=== PATIENT | female | born 2005 | race Caucasian/White ===

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

== ENCOUNTER 2025-09-21 14:23 | Inpatient (IN) | payer OTHER, SELFPAY ==
--- NOTE | ~2025-09-21 | CT_ITS ---
Rosalinda Oscar EXAMINATION: CT abdomen pelvis w con COMPARISON: None HISTORY: RLQ pain, N/V TECHNIQUE: Axial images were obtained through the abdomen, pelvis post administration of IV contrast. Oral contrast was also administered. Coronal reconstruction images were obtained from the axial views. CT scan performed using dose optimization techniques including the following automated exposure control; adjustment of mA and/or kV; use of iterative reconstruction technique. Automatic exposure control was used to reduce radiation dose. Permanent radiation dose record is archived to PACS. FINDINGS: CT abdomen: LUNG BASES: The lung bases are clear. The visualized portions of the heart and pericardium are unremarkable. LIVER: Unremarkable, liver contours intact, no lesions. SPLEEN: Unremarkable. KIDNEYS: Right Kidney: Unremarkable. No calculi. No hydronephrosis. Left Kidney: Unremarkable. No calculi. No hydronephrosis ADRENAL GLANDS: Unremarkable. PANCREAS: Unremarkable. GALLBLADDER/BILIARY: Unremarkable. No biliary dilatation. STOMACH AND ESOPHAGUS: Visualized stomach and esophagus within normal limits. BOWEL/MESENTERY: Moderate fecal content. No diverticulitis. Fluid-filled loops of large bowel which are slightly hyperemic. The appendix is prominent measuring 8 mm although there is no periappendiceal inflammation. No thickened or dilated loops of small bowel. Mesentery appears normal. ADENOPATHY/RETROPERITONEUM: No lymphadenopathy. AORTA/VASCULATURE: Normal caliber aorta. FREE FLUID OR FREE AIR: Small amount of free fluid.. CT pelvis: SOLID ORGANS/REPRODUCTIVE: Unremarkable. BLADDER: Within normal limits. OSSEOUS STRUCTURES: No acute osseous abnormality.No suspicious lesions. OVERLYING SOFT TISSUES: Unremarkable. IMPRESSION: Thickened appendix, correlate for symptoms of early appendicitis. Mild colitis is also suspected. Reviewed, dictated and finalized at location [facility]
[2025-09-21 14:28] VITALS: BP 109/69; PULSE 92; RESP 18; TEMP 36.5; O2SAT 98
[2025-09-21 14:37] VITALS: BP 110/76; O2SAT 100
[2025-09-21 15:00] LABS: Hematocrit 38.5 % (37.0-47.0); Hemoglobin 13.4 g/dL (12.0-15.0); Immature Granulocyte Percent A 0.3 % (0-0.5); Lymphocytes Absolute Auto 1.92 K/mm3 (0.9-3.2); Mean Corpuscular HGB Conc 34.8 g/dl (32-36); Mean Corpuscular Hemoglobin 29.6 pg (26-34); Mean Corpuscular Volume 85.2 fl (80-100); Nucleated Red Blood Cells Absolute Auto 0.000 K/mm3 (0.0-0.012); Nucleated Red Blood Cells Perc 0.0 % (0.0-0.2); Platelet Count Result 294 k/mm3 (150-375); Red Blood Count 4.52 M/mm3 (4.2-5.4); White Blood Count 12.6 K/mm3 (4.5-10.0)
[2025-09-21 15:09] LABS: Add Urine Microscopic? YES; Appearance Urine Cloudy (Clear); Glucose Urine UA Negative (Negative); Leukocyte Esterase Ur Negative LEU/UL (Negative); Need Manual Microscopic Reviewed; Nitrate Urine Negative (Negative); Non Pathogenic Casts 0-2; Specific Grav Ur 1.027 (1.001-1.035)
[2025-09-21 15:37] LABS: Alanine Aminotransferase 27 U/L (6-35); Albumin Level 4.3 g/dL (3.5-5.1); Alkaline Phosphatase 77 U/L (38-126); Anion Gap 5 mmol/L (4-12); Aspartate Amino Transferase 34 U/L (14-36); Bilirubin,Total 0.6 mg/dL (0.2-1.3); Blood Urea Nitrogen 17 mg/dL (7-17); Calcium 9.3 mg/dL (8.4-10.2); Carbon Dioxide 29 mmol/L (22-30); Chloride 103 mmol/L (98-107); Estimated CRCL calculation 105 ml/min; Estimated Glomerular Filt Rate > 60; Glucose 99 mg/dL (65-110); Lipase 40 U/L (23-300); Potassium 3.6 mmol/L (3.4-5.0); Sodium 137 mmol/L (137-145); Total Protein 7.1 g/dL (6.3-8.2)
--- NOTE | 2025-09-21 16:25 | ED_ITS ---
HPI - Abdominal Pain General Chief Complaint: Abdominal Pain <JOSEY Mahmood Last Filed: 09/21/25 17:39> Stated Complaint: right abdominal pain, N/V <JOSEY Mahmood Last Filed: 09/21/25 17:39> Time Seen by Provider: 09/21/25 14:24 <JOSEY Mahmood Last Filed: 09/21/25 17:39> Source: patient <JOSEY Mahmood Last Filed: 09/21/25 17:39> Mode of arrival: ambulatory <JOSEY Mahmood Last Filed: 09/21/25 17:39> Limitations: no limitations <JOSEY Mahmood Last Filed: 09/21/25 17:39> History of Present Illness HPI narrative: Patient is a 20-year-old female who presents the ED with report of right- sided abdominal pain. Patient reports she has had persistent nausea, vomiting, decreased appetite since Thursday. States today she began having pain throughout her right-sided lower abdomen. Worse with movement, standing. Denies fevers, diarrhea, constipation, dysuria, hematuria. Denies previous history of ovarian cysts. <JOSEY Mahmood Last Filed: 09/21/25 17:39> Related Data Home Medications: Home Medications ?Medication ?Instructions ?Recorded ?Confirmed ?Last Taken ?Type buspirone 15 mg tablet 15 mg PO DAILY 09/21/2502/1009/21/25 History escitalopram oxalate 20 mg tablet 20 mg PO DAILY 09/2109/21/25 09/21/25 History methylphenidate HCl 36 mg 36 mg PO DAILY PRN focus 02/1009/21/25 09/20/25 History tablet,extended release 24 hr <JOSEY Mahmood Last Filed: 09/21/25 17:39> Allergies/Adverse Reactions: Allergies Allergy/AdvReac Type Severity Reaction Status Date / Time vancomycin Allergy Severe Rash Verified 09/21/25 18:16 <JOSEY Mahmood Last Filed: 09/21/25 17:39> Review of Systems 2 Review of Systems: All systems reviewed & are unremarkable except as noted in HPI. <Gifty Hamm PA-C - Last Filed: 09/21/25 17:39> All systems reviewed & are unremarkable except as noted in HPI and below < Gifty Hamm PA-C - Last Filed: 09/21/25 17:39> PMFSH Past Medical History Medical History: Medical History No pertinent past medical history COVID-19 virus infection <Gifty Hamm PA-C - Last Filed: 09/21/25 17:39> Surgical History Surgical History: Surgical History No pertinent past surgical history <Gifty Hamm PA-C - Last Filed: 09/21/25 17:39> Family History Family History: Family History Mother Family history non-contributory <Gifty Hamm PA-C - Last Filed: 09/21/25 17:39> Social History Social History: Social History Smoking status: Never smoker Alcohol intake: never Substance use: never Lack of Transportation: No Lack of Food: Never True Current Housing: I Have Housing Concerned About Future Housing: No Difficulty Paying Gas/Electric Bills: No Difficulty Paying for Meds: No Currently Unemployed: No Education: High School Diploma/GED Difficulty w/ Childcare or Family Care: No Living arrangements: with family Gender identity (if verbalized by the patient): Female Spiritual care concerns: No <Gifty Hamm PA-C - Last Filed: 09/21/25 17:39> Exam 2 Narrative: GENERAL: Well appearing, well-nourished, non-toxic, in no acute distress. HEAD: Normocephalic, atraumatic. RESPIRATORY: Airway patent, respirations nonlabored. Clear to auscultation bilaterally, no rales, rhonchi, wheezing. CARDIOVASCULAR: Regular rate and rhythm without murmurs, rubs, or gallops. ABDOMINAL: Soft, focal tenderness throughout right lower abdomen. Positive Rovsing sign, no rebound, nondistended. Normoactive BS. MUSCULOSKELETAL: Moves all extremities. No gross deformities. SKIN: Warm, dry, normal color. NEURO: A&O X3. Speech clear. Cranial nerves II-XII grossly intact. Steady gait. No ataxic movements. PSYCHIATRIC: Appropriate mood and affect. Normal interaction. <Gifty Hamm PA-C - Last Filed: 09/21/25 17:39> Course DIRECTOR OUTCOMES/PA Physician Supervision This visit was performed by both a physician and an APC; I performed all aspects of the medical decision making component of this evaluation as documented. <Bridgette Antunez MD - Last Filed: 09/21/25 18:22> Vital Signs Vital signs: Vital Signs Temperature 97.7 F 09/21/25 14:28 Pulse Rate 92 09/21/25 14:28 Respiratory Rate 18 09/21/25 14:28 Blood Pressure 109/69 09/21/25 14:28 Pulse Oximetry 98 09/21/25 14:28 Temperature 97.7 F 09/21/25 14:28 Pulse Rate 96 09/21/25 17:40 Respiratory Rate 18 09/21/25 17:40 Blood Pressure 103/80 09/21/25 17:40 Pulse Oximetry 98 09/21/25 17:40 <Gifty Hamm PA-C - Last Filed: 09/21/25 17:39> Vital Signs Temperature 97.7 F 09/21/25 14:28 Pulse Rate 92 09/21/25 14:28 Respiratory Rate 18 09/21/25 14:28 Blood Pressure 109/69 09/21/25 14:28 Pulse Oximetry 98 09/21/25 14:28 Temperature 97.7 F 09/21/25 14:28 Pulse Rate 96 09/21/25 17:40 Respiratory Rate 18 09/21/25 17:40 Blood Pressure 103/80 09/21/25 17:40 Pulse Oximetry 98 09/21/25 17:40 <Bridgette Antunez MD - Last Filed: 09/21/25 18:22> [facility] Narrative Medical decision making narrative: Patient presented to ED with right-sided abdominal pain, nausea, vomiting. Vital signs stable upon arrival. Patient afebrile here. Cbc with white blood cell count of 12.6. Neutrophil predominance. No bandemia. CMP unremarkable. Stable kidney function. UA with 1+ ketones, 11-20 RBC. No signs of infection. CT scan of abdomen/pelvis was obtained and showing findings concerning for early appendicitis. Discussed case with Dr. Sanchez, general surgery, recommended to start patient on Zosyn, admit and he will see patient in the morning and re-evaluate for potential surgery. Discussed these recommendations with patient and family. They are in agreement with plan. P.r.n. pain and nausea medicines ordered. Patient remains hemodynamically stable at this time. <Gifty Hamm PA-C - Last Filed: 09/21/25 17:39> Differential Diagnosis Differential Diagnosis: Appendicitis, gastroenteritis, ovarian cyst, constipation, bowel obstruction <JOSEY Mahmood Last Filed: 09/21/25 17:39> Medical Records I have reviewed the following patient records and this information was taken into consideration when formulating the assessment and plan.: previous labs, previous ER visits, previous hospitalizations and previous clinic visits <JOSEY Mahmood Last Filed: 09/21/25 17:39> Lab Data [facility] Lab Attestation statement: I personally reviewed the patient's lab results. <Gifty Hamm PA-C - Last Filed: 09/21/25 17:39> Result diagrams: 09/21/25 14:54 09/21/25 14:54 <JOSEY Mahmood Last Filed: 09/21/25 17:39> Labs: Lab Results 09/21/25 Range/Units 14:54 WBC 12.6 H (4.5-10.0) K/mm3 RBC 4.52 (4.2-5.4) M/mm3 Hgb 13.4 (12.0-15.0) g/dL Hct 38.5 (37.0-47.0) % MCV 85.2 (80-100) fl MCH 29.6 (26-34) pg MCHC 34.8 (32-36) g/dl RDW 12.8 (11.5-14.5) % Plt Count 294 (150-375) k/mm3 MPV 9.6 (7.4-10.4) fl Immature Gran % (Auto) 0.3 (0-0.5) % Neut % (Auto) 73.4 H (45.5-73.1) % Lymph % (Auto) 15.3 L (18.3-44.2) % Ralls % (Auto) 10.7 H (2.6-8.5) % Eos % (Auto) 0.1 (0-4.4) % Baso % (Auto) 0.2 (0.2-1.2) % Lymph # (Auto) 1.92 (0.9-3.2) K/mm3 Ralls # (Auto) 1.3 H (0.1-0.6) K/mm3 Eos # (Auto) 0.0 (0-0.3) K/mm3 Baso # (Auto) 0.0 (0.0-0.1) K/mm3 Abs Immat Gran (auto) 0.04 H (0.00-0.031) K/mm3 Absolute Neuts (auto) 9.2 H (1.3-6.7) K/mm3 Absolute Nucleated RBC 0.000 (0.0-0.012) K/mm3 Nucleated RBC % 0.0 (0.0-0.2) % Sodium 137 (137-145) mmol/L Potassium 3.6 (3.4-5.0) mmol/L Chloride 103 (98-107) mmol/L Carbon Dioxide 29 (22-30) mmol/L Anion Gap 5 (4-12) mmol/L BUN 17 (7-17) mg/dL Creatinine 0.63 L (0.7-1.0) mg/dL Estim Creat Clear Calc 105 ml/min Estimated GFR > 60 (59 - ) Glucose 99 (65-110) mg/dL Calcium 9.3 (8.4-10.2) mg/dL Total Bilirubin 0.6 (0.2-1.3) mg/dL AST 34 (14-36) U/L ALT 27 (6-35) U/L Alkaline Phosphatase 77 (38-126) U/L Total Protein 7.1 (6.3-8.2) g/dL Albumin 4.3 (3.5-5.1) g/dL Lipase 40 (23-300) U/L Urine Color Yellow (Yellow) Urine Appearance Cloudy H (Clear) Urine pH 6.0 (5.0-9.0) Ur Specific [place] 1.027 (1.001-1.035) Urine Protein Trace (Negative) mg/dL Urine Glucose (UA) Negative (Negative) mg/dL Urine Ketones 1+ H (Negative) mg/dL Ur Blood (Man) Negative (Negative) Urine Nitrate Negative (Negative) Urine Bilirubin Negative (Negative) Urine Urobilinogen 1.0 (<2.0) mg/dL Add Ur Microanalysis Reviewed Leukocyte Esterase Rfl Negative (Negative) DONNA/UL Urine RBC 11-20 H (0-2) /hpf Urine WBC 0-5 (0-3) /hpf Ur Squamous Epith Cells Moderate (Few) /hpf Urine Bacteria Rare /hpf Urine Casts 0-2 <Gifty Hamm PA-C - Last Filed: 09/21/25 17:39> Lab Results 09/21/25 Range/Units 14:54 WBC 12.6 H (4.5-10.0) K/mm3 RBC 4.52 (4.2-5.4) M/mm3 Hgb 13.4 (12.0-15.0) g/dL Hct 38.5 (37.0-47.0) % MCV 85.2 (80-100) fl MCH 29.6 (26-34) pg MCHC 34.8 (32-36) g/dl RDW 12.8 (11.5-14.5) % Plt Count 294 (150-375) k/mm3 MPV 9.6 (7.4-10.4) fl Immature Gran % (Auto) 0.3 (0-0.5) % Neut % (Auto) 73.4 H (45.5-73.1) % Lymph % (Auto) 15.3 L (18.3-44.2) % Ralls % (Auto) 10.7 H (2.6-8.5) % Eos % (Auto) 0.1 (0-4.4) % Baso % (Auto) 0.2 (0.2-1.2) % Lymph # (Auto) 1.92 (0.9-3.2) K/mm3 Ralls # (Auto) 1.3 H (0.1-0.6) K/mm3 Eos # (Auto) 0.0 (0-0.3) K/mm3 Baso # (Auto) 0.0 (0.0-0.1) K/mm3 Abs Immat Gran (auto) 0.04 H (0.00-0.031) K/mm3 Absolute Neuts (auto) 9.2 H (1.3-6.7) K/mm3 Absolute Nucleated RBC 0.000 (0.0-0.012) K/mm3 Nucleated RBC % 0.0 (0.0-0.2) % Sodium 137 (137-145) mmol/L Potassium 3.6 (3.4-5.0) mmol/L Chloride 103 (98-107) mmol/L Carbon Dioxide 29 (22-30) mmol/L Anion Gap 5 (4-12) mmol/L BUN 17 (7-17) mg/dL Creatinine 0.63 L (0.7-1.0) mg/dL Estim Creat Clear Calc 105 ml/min Estimated GFR > 60 (59 - ) Glucose 99 (65-110) mg/dL Calcium 9.3 (8.4-10.2) mg/dL Total Bilirubin 0.6 (0.2-1.3) mg/dL AST 34 (14-36) U/L ALT 27 (6-35) U/L Alkaline Phosphatase 77 (38-126) U/L Total Protein 7.1 (6.3-8.2) g/dL Albumin 4.3 (3.5-5.1) g/dL Lipase 40 (23-300) U/L Urine Color Yellow (Yellow) Urine Appearance Cloudy H (Clear) Urine pH 6.0 (5.0-9.0) Ur Specific [place] 1.027 (1.001-1.035) Urine Protein Trace (Negative) mg/dL Urine Glucose (UA) Negative (Negative) mg/dL Urine Ketones 1+ H (Negative) mg/dL Ur Blood (Man) Negative (Negative) Urine Nitrate Negative (Negative) Urine Bilirubin Negative (Negative) Urine Urobilinogen 1.0 (<2.0) mg/dL Add Ur Microanalysis Reviewed Leukocyte Esterase Rfl Negative (Negative) DONNA/UL Urine RBC 11-20 H (0-2) /hpf Urine WBC 0-5 (0-3) /hpf Ur Squamous Epith Cells Moderate (Few) /hpf Urine Bacteria Rare /hpf Urine Casts 0-2 <Bridgette Antunez MD - Last Filed: 09/21/25 18:22> Imaging Data Attestation: I personally reviewed and interpreted this imaging study as follows: < Gifty Hamm PA-C - Last Filed: 09/21/25 17:39> Radiologist's impression: ITS Impressions Abdomen/Pelvis CT 09/21/25 16:10 IMPRESSION: Thickened appendix, correlate for symptoms of early appendicitis. Mild colitis is also suspected. <Gifty Hamm PA-C - Last Filed: 09/21/25 17:39> ITS Impressions Abdomen/Pelvis CT 09/21/25 16:10 IMPRESSION: Thickened appendix, correlate for symptoms of early appendicitis. Mild colitis is also suspected. <Bridgette Antunez MD - Last Filed: 09/21/25 18:22> Discharge Plan Discharge Clinical Impression: Acute appendicitis Qualifiers: Acute appendicitis type: with localized peritonitis Appendicitis gangrene presence: without gangrene Appendicitis perforation presence: without perforation Appendicitis abscess presence: without abscess Qualified Code(s): K 35.30 - Acute appendicitis with localized peritonitis, without perforation or gangrene <Gifty Hamm PA-C - Last Filed: 09/21/25 17:39> Patient Disposition: Still a Patient <JOSEY Mahmood Last Filed: 09/21/25 17:39> Condition: Stable <JOSEY Mahmood Last Filed: 09/21/25 17:39>
[2025-09-21] MEDS: SODIUM CHLORIDE 0.9% IV 1,000 ML 999 ML IV CONT (16:30)
[2025-09-21] MEDS: PIPERACILLIN/TAZOBACTAM SOD 3.375 GM in SODIUM CHLORIDE 0.9% IV 50 ML 100 ML IVPB ×2 (17:12→23:55)
[2025-09-21 17:40] VITALS: BP 103/80; PULSE 96; RESP 18; O2SAT 98
--- NOTE | 2025-09-21 17:45 | WPCEDHO ---
ED Hand Off Checklist All vitals saved:yes IV Site documented:yes All med administrations documented:yes Triage Note Triage Note Patient started having N/V since 09/21/25 14:25 Neto and then right sided abdominal pain last night. Allergies vancomycin Allergy (Severe, Verified 09/21/25 14:24) Rash Family History (Last Reviewed 09/21/25 @ 16:31 by Gifty Hamm PA-C) Mother Family history non-contributory Administered/Completed Medications Discontinued Medications Sodium Chloride (Normal Saline Iv) 1,000 mls @ 999 mls/hr IV CONT .Q1H1M STA Stop: 09/21/25 16:53 Last Admin: 09/21/25 16:30 Dose: 999 mls/hr Documented By: [facility] Piperacillin Sod/Tazobactam (Sod 3.375 gm/ Sodium Chloride) 50 mls @ 100 mls/hr IVPB ONCE STA Stop: 09/21/25 17:27 Last Admin: 09/21/25 17:12 Dose: 100 mls/hr Documented By: VALENTÍN Interventions/Assessments IV / Saline Lock, Insert Start: 09/21/25 14:23 Freq: Status: Active Protocol: Document 09/21/25 14:44 [facility] (Rec: 09/21/25 14:44 [facility] [id number]) IV Assessment Peripheral Access Right Antecubital IV Catheter Access Initiated IV Insertion Date 09/21/25 IV Insertion Time 14:44 Catheter Gauge 18 IV Insertion 1 Attempts Ultrasound Used for No Placement IV Site Assessment WNL IV Care and WNL Maintenance IV / Saline Lock, Insert Start: 09/21/25 14:48 Freq: STAT Status: Active Protocol: Document 09/21/25 16:23 [facility] (Rec: 09/21/25 16:23 [facility] [id number]) IV Assessment Peripheral Access Right Antecubital IV Catheter Access Initiated IV Insertion Date 09/21/25 IV Insertion Time 16:23 PA: Gastrointestinal Assessment Start: 09/21/25 14:23 Freq: Status: Active Protocol: Document 09/21/25 14:44 [facility] (Rec: 09/21/25 14:45 [facility] [id number]) GI Assessment Gastrointestinal Nausea,Pain,Vomiting Symptoms Description Flat,Soft,Tender All Quadrants Bowel Sounds Active Pattern Normal Last Vital Signs Temperature 97.7 F 09/21/25 14:28 Pulse Rate 96 09/21/25 17:40 Respiratory Rate 18 09/21/25 17:40 Pulse Oximetry 98 09/21/25 17:40 Blood Pressure 103/80 09/21/25 17:40 Blood Pressure Mean 87 09/21/25 17:40 Blood Pressure Position Sitting 09/21/25 14:28 Weight 60.3 kg 09/21/25 14:25 Last Result - Abnormals Only WBC 12.6 K/mm3 (4.5-10.0) H 09/21/25 14:54 Neut % (Auto) 73.4 % (45.5-73.1) H 09/21/25 14:54 Lymph % (Auto) 15.3 % (18.3-44.2) L 09/21/25 14:54 [place] % (Auto) 10.7 % (2.6-8.5) H 09/21/25 14:54 [place] # (Auto) 1.3 K/mm3 (0.1-0.6) H 09/21/25 14:54 Abs Immat Gran (auto) 0.04 K/mm3 (0.00-0.031) H 09/21/25 14:54 Absolute Neuts (auto) 9.2 K/mm3 (1.3-6.7) H 09/21/25 14:54 Creatinine 0.63 mg/dL (0.7-1.0) L 09/21/25 14:54 Urine Appearance Cloudy (Clear) H 09/21/25 14:54 Urine Ketones 1+ mg/dL (Negative) H 09/21/25 14:54 Urine RBC 11-20 /hpf (0-2) H 09/21/25 14:54 Most Recent Suicide Severity Rating Suicide Severity Rating NO RISK INDICATED 09/21/25 14:25
[2025-09-21] MEDS: ACETAMINOPHEN 325 MG TABLET 650 MG PO (18:00)
[2025-09-21] MEDS: SODIUM CHLORIDE 0.9% IV 1,000 ML 100 ML IV CONT (18:00)
--- NOTE | 2025-09-21 18:00 | ADMGEN ---
This patient, Rosalinda Oscar, was admitted to Medical Room 340-01. Patient/family oriented to hospital policies and general routines including ID bracelet, bed and alarms, visiting hours, pain management, procedures, bathroom and other care routines, personal items, smoking policy, room service/diet, and visiting hours. Information on how to activate the Rapid Response Team has been discussed. Patient/Family are encouraged to report perceived risks to care and to ask questions if they do not understand what they are told or what they should do.
[2025-09-21 18:11] VITALS: BMI 22.0
[2025-09-21 20:00] VITALS: PULSE 96; RESP 18; O2SAT 98
[2025-09-21] MEDS: ONDANSETRON INJ 4 MG/2 ML VIAL IV PUSH (20:26)
[2025-09-21 21:52] VITALS: BP 108/74; PULSE 92; RESP 20; TEMP 36.8; O2SAT 100
[2025-09-22] MEDS: SODIUM CHLORIDE 0.9% IV 1,000 ML 100 ML IV CONT (04:35)
[2025-09-22] MEDS: ACETAMINOPHEN 325 MG TABLET 650 MG PO ×2 (04:59→16:19)
[2025-09-22] MEDS: PIPERACILLIN/TAZOBACTAM SOD 3.375 GM in SODIUM CHLORIDE 0.9% IV 50 ML 100 ML IVPB ×2 (05:01→12:35)
[2025-09-22 06:00] VITALS: BP 99/65; PULSE 78; RESP 20; TEMP 36.8; O2SAT 100
[2025-09-22 07:51] LABS: Hematocrit 36.2 % (37.0-47.0); Hemoglobin 11.9 g/dL (12.0-15.0); Mean Corpuscular HGB Conc 32.9 g/dl (32-36); Mean Corpuscular Hemoglobin 29.0 pg (26-34); Mean Corpuscular Volume 88.1 fl (80-100); Platelet Count Result 249 k/mm3 (150-375); Red Blood Count 4.11 M/mm3 (4.2-5.4); White Blood Count 8.3 K/mm3 (4.5-10.0)
[2025-09-22 08:00] VITALS: BP 91/53; PULSE 77; RESP 16; TEMP 36.6; O2SAT 99
[2025-09-22 08:13] LABS: Anion Gap 5 mmol/L (4-12); Blood Urea Nitrogen 14 mg/dL (7-17); Calcium 8.2 mg/dL (8.4-10.2); Carbon Dioxide 24 mmol/L (22-30); Chloride 108 mmol/L (98-107); Estimated CRCL calculation 110 ml/min; Estimated Glomerular Filt Rate > 60; Glucose 70 mg/dL (65-110); Potassium 3.6 mmol/L (3.4-5.0); Sodium 137 mmol/L (137-145)
[2025-09-22] MEDS: ONDANSETRON INJ 4 MG/2 ML VIAL IV PUSH (09:24)
--- NOTE | 2025-09-22 10:04 | P.HP_ITS ---
H&P: HPI History of Present Illness Date/Time: 09/22/25 10:04 Chief Complaint: abdominal pain Narrative: Patient is a 20-year-old female who presented to the ER yesterday evening with complaints of right-sided abdominal pain that started earlier in the day. Patient also notes that she began having nausea and vomiting along with decreased appetite since Thursday. Patient's mother at bedside states that for the past 8-9 months patient has had episodes of vomiting, fevers, and drowsiness. These episodes have occurred every 7 or so weeks. Patient has undergone extensive GI workup for this. Upon admission to the ED, labs revealed a white blood cell count of 12.6. CT demonstrated a thickened appendix measuring 8 mm with suspected mild colitis. No periappendiceal inflammation. Patient was admitted to the floor under general surgery team. Started on IV Zosyn. Upon interview this morning, white blood cell count has normalized to 8.3. Patient rates her pain a 1 or 2 out of 10. She has not needed any narcotic pain medication. Her blood pressures this morning have been soft. Patient denies any previous abdominal surgeries. She denies any history of ovarian cysts or other OBGYN related issues. No bowel or bladder issues. [facility] Past Medical History Medical History No pertinent past medical history COVID-19 virus infection Surgical History Surgical History No pertinent past surgical history Family History Family History (Updated 09/21/25 @ 18:22 by Azul Kay RN) Mother Hypertension Father Cancer Other Family history non-contributory Social History Social History Smoking status: Never smoker Alcohol intake: never Substance use: never Lack of Transportation: No Lack of Food: Never True Current Housing: I Have Housing Concerned About Future Housing: No Difficulty Paying Gas/Electric Bills: No Difficulty Paying for Meds: No Currently Unemployed: No Education: High School Diploma/GED Difficulty w/ Childcare or Family Care: No Living arrangements: with family Gender identity (if verbalized by the patient): Female Spiritual care concerns: No Meds Home Medications and Allergies Home Medications ?Medication ?Instructions ?Recorded ?Confirmed ?Type buspirone 15 mg tablet 15 mg PO DAILY 09/21/25/02/10 History escitalopram oxalate 20 mg tablet 20 mg PO DAILY 09/2109/21/25 History methylphenidate HCl 36 mg 36 mg PO DAILY PRN focus 02/1009/21/25 History tablet,extended release 24 hr Allergies Allergy/AdvReac Type Severity Reaction Status Date / Time vancomycin Allergy Severe Rash Verified 09/21/25 18:16 Vital Signs Vital Signs - 24 hr 09/21/25 14:28 09/21/25 14:37 09/21/25 17:40 Temperature 97.7 F Pulse Rate 92 96 Respiratory Rate 18 18 Blood Pressure 109/69 110/76 103/80 Pulse Oximetry 98 100 98 Oxygen Delivery 09/21/25 20:00 09/21/25 21:52 09/22/25 06:00 Temperature 98.2 F 98.2 F Pulse Rate 96 92 78 Respiratory Rate 18 20 20 Blood Pressure 108/74 99/65 L Pulse Oximetry 98 100 100 Oxygen Delivery Room Air 09/22/25 08:00 09/22/25 08:48 Temperature 97.9 F Pulse Rate 77 Respiratory Rate 16 Blood Pressure 91/53 L Pulse Oximetry 99 Oxygen Delivery Room Air Exam Const: General: comfortable and no acute distress Eyes: General: appearance normal, both eyes and all related structures Neck: Neck: supple Resp: Effort & Inspection: normal respiratory effort Cardio: Rate: regular rate GI: Inspection: non-distended GI Palp: Yes Soft to palpation, Yes Tenderness to palpation present (GI) (Right lower quadrant) and No Guarding due to palpation present (GI) Auscultation: normal bowel sounds Skin: General skin exam: normal color and no rashes or lesions noted Neuro: General: gait normal Sensory Exam: normal sensation Extrem: General: normal to inspection Psych: Mental Status: mental status grossly normal Results Labs Labs: Short CBC 09/21/25 09/22/25 Range/Units 14:54 07:26 WBC 12.6 H 8.3 (4.5-10.0) K/mm3 Hgb 13.4 11.9 L (12.0-15.0) g/dL Hct 38.5 36.2 L (37.0-47.0) % Plt Count 294 249 (150-375) k/mm3 BMP 09/21/25 09/22/25 14:54 07:26 Sodium 137 137 Potassium 3.6 3.6 Chloride 103 108 H Carbon Dioxide 29 24 BUN 17 14 Creatinine 0.63 L 0.60 L Glucose 99 70 Calcium 9.3 8.2 L Liver Function 09/21/25 Range/Units 14:54 Total Bilirubin 0.6 (0.2-1.3) mg/dL AST 34 (14-36) U/L ALT 27 (6-35) U/L Alkaline Phosphatase 77 (38-126) U/L Albumin 4.3 (3.5-5.1) g/dL Urine 09/21/25 Range/Units 14:54 Urine Color Yellow (Yellow) Urine Appearance Cloudy H (Clear) Urine pH 6.0 (5.0-9.0) Ur Specific [place] 1.027 (1.001-1.035) Urine Protein Trace (Negative) mg/dL Urine Glucose (UA) Negative (Negative) mg/dL Assessment and Plan Assessment and plan (1) Acute appendicitis: Qualifiers: Acute appendicitis type: with localized peritonitis Appendicitis abscess presence: without abscess Appendicitis gangrene presence: without gangrene Appendicitis perforation presence: without perforation Qualified Code(s): K35.30 - Acute appendicitis with localized peritonitis, without perforation or gangrene Code(s): K35.80 - Unspecified acute appendicitis Status: Acute Assessment and Plan: Patient presented to the ER yesterday evening with complaints of right lower quadrant pain that started earlier in the day. She also notes associated nausea and vomiting that started earlier in the week. She has had several episodes of vomiting, fevers, and drowsiness over the past 8-9 months and has undergone workup with GI. WBC elevated at 12.[address] demonstrated early acute appendicitis. Patient's pain is minimal. WBC has normalized with IV Zosyn. Will discuss with surgeon regarding conservative management with antibiotics versus laparoscopic appendectomy versus interval appendectomy. Plan Discussed patient's case and plan of care with Dr. Sanchez.
[2025-09-22 12:00] VITALS: BP 90/63; PULSE 87; RESP 16; TEMP 36.6; O2SAT 100
[2025-09-22 16:00] VITALS: BP 108/71; PULSE 99; RESP 16; TEMP 36.3; O2SAT 98
[2025-09-22] MEDS: KCL 20 MEQ/D5/0.45% SOD CHL 1,000 ML 125 ML IV CONT (16:25)
[2025-09-22] MEDS: CEFEPIME 2 GM in SODIUM CHLORIDE 0.9% IV 50 ML 100 ML IVPB (17:11)
[2025-09-22] MEDS: metroNIDAZOLE 500 MG/ISO 100ML 500 MG/100 ML BAG 100 MG IVPB (17:11)
[2025-09-22 19:49] VITALS: BP 106/68; PULSE 85; RESP 16; TEMP 36.7; O2SAT 99
[2025-09-22 20:00] VITALS: PULSE 85; RESP 16; O2SAT 99
[2025-09-23] VITALS (11 sets, daily range): BP systolic 97–139; BP diastolic 65–94; PULSE 59–103; RESP 12–20; TEMP 36.1–36.9; O2SAT 93–100
[2025-09-23] MEDS: CEFEPIME 2 GM in SODIUM CHLORIDE 0.9% IV 50 ML 100 ML IVPB ×4 (00:19→23:59)
[2025-09-23] MEDS: ONDANSETRON INJ 4 MG/2 ML VIAL IV PUSH ×3 (00:25→21:26)
[2025-09-23] MEDS: metroNIDAZOLE 500 MG/ISO 100ML 500 MG/100 ML BAG 100 MG IVPB ×3 (00:54→16:57)
[2025-09-23] MEDS: KCL 20 MEQ/D5/0.45% SOD CHL 1,000 ML 125 ML IV CONT (04:00)
[2025-09-23] MEDS: MORPHINE SULFATE (*CRX) 4 MG/ML INJ 2 MG IV PUSH (05:29)
[2025-09-23 05:54] LABS: Hematocrit 34.5 % (37.0-47.0); Hemoglobin 11.4 g/dL (12.0-15.0); Immature Granulocyte Percent A 0.4 % (0-0.5); Lymphocytes Absolute Auto 2.30 K/mm3 (0.9-3.2); Mean Corpuscular HGB Conc 33.0 g/dl (32-36); Mean Corpuscular Hemoglobin 28.9 pg (26-34); Mean Corpuscular Volume 87.6 fl (80-100); Nucleated Red Blood Cells Absolute Auto 0.000 K/mm3 (0.0-0.012); Nucleated Red Blood Cells Perc 0.0 % (0.0-0.2); Platelet Count Result 270 k/mm3 (150-375); Red Blood Count 3.94 M/mm3 (4.2-5.4); White Blood Count 6.9 K/mm3 (4.5-10.0)
[2025-09-23 06:13] LABS: Anion Gap 2 mmol/L (4-12); Blood Urea Nitrogen 10 mg/dL (7-17); Calcium 8.0 mg/dL (8.4-10.2); Carbon Dioxide 24 mmol/L (22-30); Chloride 110 mmol/L (98-107); Estimated CRCL calculation 111 ml/min; Estimated Glomerular Filt Rate > 60; Glucose 132 mg/dL (65-110); Potassium 3.8 mmol/L (3.4-5.0); Sodium 136 mmol/L (137-145)
[2025-09-23] MEDS: IBUPROFEN IV 800 MG/200 ML 800 MG/200 ML BAG 400 MG IVPB (11:09)
--- NOTE | 2025-09-23 11:12 | PM.PNGS ---
Progress Note: A&P Assessment and Plan (1) Acute appendicitis: Qualifiers: Acute appendicitis type: with localized peritonitis Appendicitis abscess presence: without abscess Appendicitis gangrene presence: without gangrene Appendicitis perforation presence: without perforation Qualified Code(s): K35.30 - Acute appendicitis with localized peritonitis, without perforation or gangrene Code(s): K35.80 - Unspecified acute appendicitis Status: Acute Assessment and Plan: Patient still having nausea and abdominal pain despite nearly 48 hours of IV antibiotics. She continues to be tender in the right lower quadrant. I have recommended we go ahead with laparoscopic appendectomy. I explained the procedure in detail. I explained the usual length of stay in the hospital and recovery. I did also explain that I am not sure that appendicitis is the cause for the 8 month history of intermittent severe nausea with emesis that she has been having. However, at the present time, it seems the most likely diagnosis and medical treatment has not been effective. After discussion, the patient and her mom wished to go ahead with laparoscopic appendectomy as I described. We will proceed this afternoon. Subjective Subjective Date/Time Seen: 09/23/25 11:12 Patient reports: still having pain, voiding w/o difficulty, no bowel movement, nausea and afebrile Interval history: Diarrhea stopped after changing antibiotics yesterday. Still having abdominal pain, mostly right-sided with intermittent episodes of nausea. Not really any better than yesterday. Review of Systems Review of Systems: All systems reviewed & are unremarkable except as noted in HPI and below (HPI) Constitutional: Constitutional: Reports as per HPI and Reports poor appetite Gastrointestinal: Gastrointestinal: Reports as per HPI, Reports abdominal pain, Reports diarrhea (Stopped after Zosyn discontinued) and Reports nausea Objective Data Vital Signs Vital Signs: Vital Signs - 24 hr 09/22/25 12:00 09/22/25 16:00 09/22/25 19:49 Temperature 36.6 C 36.3 C L 36.7 C Pulse Rate 87 99 85 Respiratory Rate 16 16 16 Blood Pressure 90/63 L 108/71 106/68 Pulse Oximetry 100 98 99 Oxygen Delivery 09/22/25 20:00 09/23/25 00:40 09/23/25 04:32 Temperature 36.4 C 36.1 C L Pulse Rate 85 79 87 Respiratory Rate 16 15 15 Blood Pressure 112/74 102/65 Pulse Oximetry 99 99 98 Oxygen Delivery Room Air 09/23/25 08:00 09/23/25 08:00 Temperature 36.6 C Pulse Rate 73 Respiratory Rate 16 Blood Pressure 116/76 Pulse Oximetry 99 Oxygen Delivery Room Air Intake/Output Intake/Output: Intake & Output 09/20/25 09/21/25 09/22/25 09/23/25 23:59 23:59 23:59 23:59 Intake Total 1050 1730 1440 Balance 1050 1730 1440 Meds/Results Medications: Active Medications Generic Name Dose Route Start Last Admin Trade Name Freq PRN Reason Stop Dose Admin Acetaminophen 650 mg 09/21/25 17:05 09/22/25 16:19 Acetaminophen 325 Mg Tablet PO 650 mg Q4H PRN Administration Mild Pain (1-3) or Fever Buspirone HCl 15 mg 09/22/25 09:00 09/23/25 08:47 Buspirone Hcl 5 Mg Tablet PO Not Given DAILY AILEEN Escitalopram Oxalate 20 mg 09/22/25 09:00 09/23/25 08:47 Escitalopram Oxalate 10 Mg Tablet PO Not Given DAILY AILEEN Ibuprofen 800 mg in 200 mls @ 400 mls/hr 09/22/25 07:14 Caldolor 800 Mg/200 Ml IVPB Q6H PRN Breakthrough Pain Rated 1-3 or NPO Potassium Chloride/Dextrose/Sod Cl 1,000 mls @ 125 mls/hr 09/22/25 10:40 09/23/25 04:00 Kcl 20 Meq/D5/0.45% Sod Chl IV CONT 125 mls/hr .Q8H AILEEN Administration Cefepime HCl 2 gm/ Sodium 50 mls @ 100 mls/hr 09/22/25 16:00 09/23/25 09:13 Chloride IVPB Infused Q8H AILEEN Infusion Metronidazole 500 mg in 100 mls @ 100 mls/hr 09/22/25 17:00 09/23/25 09:48 Flagyl 500 Mg/Iso Soln 100 Ml IVPB 100 mls/hr Q8H AILEEN Administration Loperamide HCl 2 mg 09/22/25 16:16 Loperamide Hcl 2 Mg Capsule PO PRN PRN Diarrhea Miscellaneous Information 1 each 09/22/25 00:01 Methylphenidate Er Nonformulary. Can Patient Bring From Home Or Hold Till Discharge? XX 10/22/25 00:00 CLARIFY ALIEEN Morphine Sulfate 2 mg 09/21/25 17:05 09/23/25 05:29 Morphine Sulfate (*Crx) 4 Mg/Ml Inj IV PUSH 2 mg Q2H PRN Administration Pain Rated 7-10 Morphine Sulfate 4 mg 09/22/25 07:14 Morphine Sulfate (*Crx) 4 Mg/Ml Inj IV PUSH Q2H PRN Breakthrough Pain Rated 7-10 or NPO Naloxone HCl 0.1 mg 09/22/25 07:14 Naloxone Hcl 0.4 Mg/Ml Vial IV PUSH Q2M PRN Opiate Reversal Ondansetron HCl 4 mg 09/21/25 17:05 09/23/25 05:25 Ondansetron Inj 4 Mg/2 Ml Vial IV PUSH 4 mg Q4H PRN Administration Nausea Radiology Results: ITS Impressions Abdomen/Pelvis CT 09/21/25 16:10 IMPRESSION: Thickened appendix, correlate for symptoms of early appendicitis. Mild colitis is also suspected. Labs Labs: Laboratory Results - last 24 hr 09/23/25 05:17 WBC 6.9 RBC 3.94 L Hgb 11.4 L Hct 34.5 L MCV 87.6 MCH 28.9 MCHC 33.0 RDW 12.9 Plt Count 270 MPV 10.2 Immature Gran % (Auto) 0.4 Neut % (Auto) 53.0 Lymph % (Auto) 33.2 [place] % (Auto) 11.7 H Eos % (Auto) 1.3 Baso % (Auto) 0.4 Lymph # (Auto) 2.30 [place] # (Auto) 0.8 H Eos # (Auto) 0.1 Baso # (Auto) 0.0 Abs Immat Gran (auto) 0.03 Absolute Neuts (auto) 3.7 Absolute Nucleated RBC 0.000 Nucleated RBC % 0.0 Sodium 136 L Potassium 3.8 Chloride 110 H Carbon Dioxide 24 Anion Gap 2 L BUN 10 Creatinine 0.59 L Estim Creat Clear Calc 111 Estimated GFR > 60 Glucose 132 H Calcium 8.0 L
--- NOTE | 2025-09-23 14:52 | PC.NURSE ---
1100 Pt & mother updated to plan for surgery around 2:30 or 3:00 this afternoon. House Sup said that he would expect surgery to call for her to be brought down in an hour to an hour and a half. This was communicated to the mother who said she would like to get some lunch. She returned about an hour later & no new updates were given to me & I shared no new updates with her because I didn't have any.
--- NOTE | 2025-09-23 14:55 | PC.NURSE ---
3341 Pt called & requested to speak with me. I entered the room & asked if them if they called to speak to me. Mother appeared visibly aggitated. She asked if I had heard anything from surgery or if there were any updates. I said, I haven't heard anything from surgery. I know that Dr Sanchez had another more extensive case prior to this. She said, It would've been nice to get an update. I told her I would update her whenever I get an update, but I haven't heard anything yet myself, but if I do, I will be sure to let you know as soon as I hear. She seemed to still be upset & said, That stool sample is still in the bathroom. I explained that someone cancelled the order & I would dispose of it, which I did immediately.
--- NOTE | 2025-09-23 15:22 | PC.NURSE ---
1515 Dianna called for patient to brought to PACU for prep. Consent signed & placed on chart per Dr Sanchez's order. Mother & father at bedside.
--- NOTE | 2025-09-23 15:45 | P.PNAN_ITS ---
Anes - Initial Pre Proc Eval Procedure: Operation Date: 09/22/25 16:00 Proposed Procedures p Laparoscopic Appendectomy - Kuldeep Sanchez MD Operation Date: 09/23/25 15:00 Proposed Procedures p Laparoscopic Appendectomy(Not Applicable) - Kuldeep Sanchez MD Date/Time: 09/23/25 15:45 Surgeon: Kuldeep Sanchez MD Pre Op Diagnosis: Acute Appendicitis Patient Data Age: 20 Gender: F Height: 1.63 m Weight: 58.3 kg Last Vital Signs Temp 36.9 C 09/23/25 12:00 Pulse 78 09/23/25 12:00 Resp 16 09/23/25 12:00 BP 118/91 H 09/23/25 12:00 Pulse Ox 98 09/23/25 12:00 O2 Del Method Room Air 09/23/25 08:00 Allergies Allergy/AdvReac Type Severity Reaction Status Date / Time vancomycin Allergy Severe Rash Verified 09/21/25 18:16 Home Medications ?Medication ?Instructions ?Recorded ?Confirmed ?Type buspirone 15 mg tablet 15 mg PO DAILY 09/21/2502/10 History escitalopram oxalate 20 mg tablet 20 mg PO DAILY 09/2109/21/25 History methylphenidate HCl 36 mg 36 mg PO DAILY PRN focus 02/1009/21/25 History tablet,extended release 24 hr Laboratory Tests 09/23/25 05:17 WBC 6.9 K/mm3 (4.5-10.0) RBC 3.94 L M/mm3 (4.2-5.4) Hgb 11.4 L g/dL (12.0-15.0) Hct 34.5 L % (37.0-47.0) MCV 87.6 fl (80-100) MCH 28.9 pg (26-34) MCHC 33.0 g/dl (32-36) RDW 12.9 % (11.5-14.5) Plt Count 270 k/mm3 (150-375) MPV 10.2 fl (7.4-10.4) Immature Gran % (Auto) 0.4 % (0-0.5) Neut % (Auto) 53.0 % (45.5-73.1) Lymph % (Auto) 33.2 % (18.3-44.2) [place] % (Auto) 11.7 H % (2.6-8.5) Eos % (Auto) 1.3 % (0-4.4) Baso % (Auto) 0.4 % (0.2-1.2) Lymph # (Auto) 2.30 K/mm3 (0.9-3.2) [place] # (Auto) 0.8 H K/mm3 (0.1-0.6) Eos # (Auto) 0.1 K/mm3 (0-0.3) Baso # (Auto) 0.0 K/mm3 (0.0-0.1) Abs Immat Gran (auto) 0.03 K/mm3 (0.00-0.031) Absolute Neuts (auto) 3.7 K/mm3 (1.3-6.7) Absolute Nucleated RBC 0.000 K/mm3 (0.0-0.012) Nucleated RBC % 0.0 % (0.0-0.2) Sodium 136 L mmol/L (137-145) Potassium 3.8 mmol/L (3.4-5.0) Chloride 110 H mmol/L (98-107) Carbon Dioxide 24 mmol/L (22-30) Anion Gap 2 L mmol/L (4-12) BUN 10 mg/dL (7-17) Creatinine 0.59 L mg/dL (0.7-1.0) Estim Creat Clear Calc 111 ml/min Estimated GFR > 60 (59 - ) Glucose 132 H mg/dL (65-110) Calcium 8.0 L mg/dL (8.4-10.2) Patient hx anesthesia problems: none Family hx anesthesia problems: none Results Review: All pre-operative results and documents have been reviewed as part of the pre- operative evaluation. [facility] Past Medical History Medical History No pertinent past medical history COVID-19 virus infection Surgical History Surgical History No pertinent past surgical history Family History Family History Mother Hypertension Father Cancer Other Family history non-contributory Social History Social History Smoking status: Never smoker Alcohol intake: never Substance use: never Lack of Transportation: No Lack of Food: Never True Current Housing: I Have Housing Concerned About Future Housing: No Difficulty Paying Gas/Electric Bills: No Difficulty Paying for Meds: No Currently Unemployed: No Education: High School Diploma/GED Difficulty w/ Childcare or Family Care: No Living arrangements: with family Gender identity (if verbalized by the patient): Female Spiritual care concerns: No Anes - Eval Final PreProcedure Day of Procedure 09/23/25 15:45 Patient weight: normal Heart: regular rate and rhythm Lungs: clear to auscultation Airway: Mallampati scale class 1 Neurological: alert and oriented Last oral intake: >/= 8 hours ASA classification: II Emergent: no Anesthetic plan: proceed Anesthesia type and monitoring: general ETT and standard monitoring Results Review: All pre-operative results and documents have been reviewed as part of the pre- operative evaluation. Informed Consent: The patient's anesthetic plan and its attendant risks and benefits were discussed with the patient/family/POA. Questions were solicited and answers provided to the satisfaction of the patient/family/POA.
--- NOTE | 2025-09-23 15:45 | WPDHPUPDATE1 ---
History and Physical Update Update Date/Time: 09/23/25 15:45 History and Physical has been reviewed, including an updated exam of the patient. There are NO changes in the patient's condition. Risks, benefits, and alternatives have been discussed and questions answered. Patient agrees to proceed with procedure.
[2025-09-23] MEDS: BUPIVACAINE/EPINEPHRINE 0.5% 50 ML VIAL 30 ML INFILTRATE (16:49)
--- NOTE | 2025-09-23 17:03 | S_PTH ---
PATIENT: Rosalinda Oscar LOC: [id number] U#:[id number] AGE/SX: 20/F ROOM: 340 RE09/23/[address]: Kuldeep Sanchez MD : 2005 BED: 01 DIS: 09/24/2025 SPEC #: [id number] RECD: 09/25/25 07:51 STATUS: SOULilia REQ #: [id number] JOSE DANIEL: 09/23/25 17:[address]: Kuldeep Sanchez DEPT: [facility] Surgical RECD BY: Hazel Obrien ENTERED: 09/25/25 07:51 SP TYPE: Surgical OTHR DR: Constanza Perez Tissues: A - Appendix Procedures: Hematoxylin and Eosin Stain Gross and Microscopic Level 3
[2025-09-23] MEDS: LACTATED RINGERS 1,000 ML 30 ML IV CONT (17:25)
--- NOTE | 2025-09-23 17:26 | W.PM.PROC2 ---
Procedure Note - Detailed Date of Procedure 09/23/25 Pre-op Diagnosis Acute Appendicitis Post-op Diagnosis Same Procedure Performed Laparoscopic appendectomy Surgeon Kuldeep Sanchez MD [employer] Kristopher LINDSEY Anesthesia General and Local Indications Patient had some nausea and vomiting about 6 days ago. She stopped with the vomiting but in you to have some episodes of nausea and did not feel well. Two days ago she started having abdominal pain in the right lower quadrant. The nausea was still present. She came to the emergency room where she was noted to have leukocytosis as well as right lower quadrant tenderness. [place] [id number]. CT scan showed an 8 mm appendix without periappendiceal inflammation. She also had fluid-filled loops of large intestine that was slightly early hyperemic. She was thought to have either early appendicitis or possibly colitis. She was treated with Zosyn antibiotics and had some improvement. Her white blood cell count decreased. Yesterday it was found that she was having diarrhea after her doses of Zosyn so this was changed to cefepime and metronidazole. The diarrhea went away. Today, nearly 48 hours after antibiotics were started, she is still having pain and nausea. She is taken now to surgery for laparoscopic appendectomy as it appears medical treatment has not been effective. Also no were the is that the patient has for the last 8 months had intermittent episodes of severe nausea with vomiting that would last 2 or 3 days and occur about every 7 or 8 weeks. She had an extensive GI workup with stadium attendant in [place]. She had an ultrasound of her gallbladder which was negative. Her mother describes very a scope procedures which were negative. Her current illness started off the same way as these other episodes of nausea and vomiting but this was the 1st time that she went on to then developed abdominal pain as described above. Findings The 1st 2 cm of the appendix appeared normal but the distal 3 force of the appendix was thickened and hyperemic. There was no obvious acute inflammation but this was possibly either appendicitis or chronic appendicitis. I did not see any evidence of an appendiceal tumor. Uterus tubes and ovaries all appeared normal. No other abnormalities were noted. Description of Procedure The patient was taken to surgery and induced into general anesthesia. The abdomen is prepped and draped. Trocars were placed in usual fashion using applied Medical optical trocars and local anesthesia. Patient was placed in Trendelenburg with the right-side elevated. The appendix was located fairly easily. There were no inflammatory adhesions or evidence of gangrene or perforation. The appendix was elevated and the mesoappendix was exposed. Using the cautery, I carefully dissected and divided the mesoappendix including the appendiceal artery. I skeletonized the appendix at its base. A Vicryl endoloop was used to ligate the appendix at its base. I then amputated the appendix just above the ligature. The mucosa of the appendiceal stump was cauterized. The appendix was placed in an Endo-Catch bag and retrieved through the 10 11 left lower quadrant trocar. The trocar was then replaced. I looked at both the right and left tubes and ovaries as well as the uterus. All looked normal. There was some greenish tinged but clear ascites in the pelvis which I suctioned away and saw no abnormalities other than the appendix to associate with it. I then used the Lee cone and 0 Vicryl suture to close the fascia at the 10 11 left lower quadrant trocar site. We evacuated CO2 and removed the trocar sleeves. Skin wounds were closed with subcuticular 4-0 Monocryl skin suture. The wounds were dressed with Exofin surgical adhesive. The patient was awakened and taken to recovery in good condition. Sponge and needle counts were correct x2. Estimated Blood Loss -5 Drains No Pathology Yes (Appendix) Complications None Condition Stable Disposition PACU [facility] Billing Surgery - Charge Forward: Surgery Billing (Laparoscopic appendectomy)
[2025-09-23] MEDS: MORPHINE SULFATE (*CRX) 4 MG/ML INJ IV PUSH ×2 (18:37→20:55)
[2025-09-23] MEDS: LACTATED RINGERS 1,000 ML 100 ML IV CONT (18:39)
[2025-09-24 00:06] VITALS: BP 100/69; PULSE 52; RESP 20; TEMP 36.6; O2SAT 97
[2025-09-24] MEDS: metroNIDAZOLE 500 MG/ISO 100ML 500 MG/100 ML BAG 100 MG IVPB ×2 (00:42→09:25)
[2025-09-24] MEDS: ONDANSETRON INJ 4 MG/2 ML VIAL IV PUSH (02:10)
[2025-09-24] MEDS: oxyCODONE/ACETAMINOPHEN (*CRX) 5-325 MG TABLET 1 TABLET PO ×3 (03:38→12:34)
[2025-09-24 03:41] VITALS: BP 116/83; PULSE 70; RESP 18; TEMP 36.6; O2SAT 99
[2025-09-24 06:35] LABS: Hematocrit 35.9 % (37.0-47.0); Hemoglobin 12.0 g/dL (12.0-15.0); Mean Corpuscular HGB Conc 33.4 g/dl (32-36); Mean Corpuscular Hemoglobin 29.1 pg (26-34); Mean Corpuscular Volume 87.1 fl (80-100); Platelet Count Result 276 k/mm3 (150-375); Red Blood Count 4.12 M/mm3 (4.2-5.4); White Blood Count 7.4 K/mm3 (4.5-10.0)
[2025-09-24 06:58] LABS: Anion Gap 4 mmol/L (4-12); Blood Urea Nitrogen 4 mg/dL (7-17); Calcium 9.0 mg/dL (8.4-10.2); Carbon Dioxide 27 mmol/L (22-30); Chloride 105 mmol/L (98-107); Estimated CRCL calculation 108 ml/min; Estimated Glomerular Filt Rate > 60; Glucose 106 mg/dL (65-110); Potassium 4.2 mmol/L (3.4-5.0); Sodium 136 mmol/L (137-145)
[2025-09-24 08:02] VITALS: BP 117/90; PULSE 64; RESP 12; TEMP 36.4; O2SAT 99
[2025-09-24] MEDS: CEFEPIME 2 GM in SODIUM CHLORIDE 0.9% IV 50 ML 100 ML IVPB (08:38)
[2025-09-24 12:06] VITALS: BP 118/86; PULSE 76; RESP 12; O2SAT 100
--- NOTE | 2025-09-24 12:08 | PM.DS ---
DS: Admitting Diagnosis Discharge Date 09/24/2025 Admitting Diagnosis Acute appendicitis DS: Discharge Diagnosis Discharge Diagnosis (1) Acute appendicitis: Qualifiers: Acute appendicitis type: with localized peritonitis Appendicitis abscess presence: without abscess Appendicitis gangrene presence: without gangrene Appendicitis perforation presence: without perforation Qualified Code(s): K35.30 - Acute appendicitis with localized peritonitis, without perforation or gangrene Code(s): K35.80 - Unspecified acute appendicitis Status: Acute DS: Summary Hospital Course Hospital Course: Patient came to the [place] emergency room on 09/21/2025. She had been having some nausea with vomiting about 3 days before that. The vomiting. But she remained nauseated did not feel good. Then on 09/20/2025 she started having right-sided abdominal pain. Evaluation in the [place] [id number], tenderness in the right lower quadrant, and an abnormal CT scan which showed an 8 mm appendix that was somewhat equivocal with no periappendiceal stranding and also suggest an of colitis. She was admitted and started on IV antibiotics. Further review of the CT was more indicative of early appendicitis. She improved somewhat on antibiotics but as of 09/23/2025 she was still nauseated and having right lower quadrant pain. She was taken to the operating room on 09/23. She underwent laparoscopic appendectomy. The appendix did appear to be abnormal although not acutely inflamed. The distal 3/4 of the appendix was thickened and slightly hypervascular. No suggestion of a intraluminal tumor or other such abnormality was noted. The surgery went well. Patient continued to have some nausea the night after surgery but this had resolved by the next morning. She had eaten some pancakes and other breakfast. Her appetite was improved. Postoperative pain was well controlled with oral analgesics. She was doing well and was able to be discharged on postop day 1., 09/24/2025. Status at Discharge Functional status at discharge: independent ambulation Overall status at discharge: patient is progressing back to baseline Time Spent with Patient Time attestation: Total time spent providing and/or coordinating discharge services: Time spent: Less than 30 minutes Exam Const: General: comfortable, alert, awake, well groomed and well nourished Orientation/consciousness: patient oriented x3 and No confusion GI: Inspection: non-distended, incision (Dry and healing well) and scaphoid GI Palp: Yes Soft to palpation and Yes Tenderness to palpation present (GI) Auscultation: normal bowel sounds DS: Data Data Completed and Pending Pending studies at discharge: Pending at discharge 09/23/25 17:03 Surgical [PTH] Routine Labs on day of discharge: Labs from last 24 hours 09/24/25 05:21 WBC 7.4 RBC 4.12 L Hgb 12.0 Hct 35.9 L MCV 87.1 MCH 29.1 MCHC 33.4 RDW 12.8 Plt Count 276 MPV 10.6 H Sodium 136 L Potassium 4.2 Chloride 105 Carbon Dioxide 27 Anion Gap 4 BUN 4 L D Creatinine 0.61 L Estim Creat Clear Calc 108 Estimated GFR > 60 Glucose 106 Calcium 9.0 Discharge Plan Discharge Attending physician on discharge: Kuldeep Sanchez Discharging Clinician: Kuldeep Sanchez Anticipated Discharge Date/Time: 09/24/25 12:10 Patient Disposition: Home Activity: may shower, no straining and as tolerated Diet: regular Wound Care Instructions: incision open to air Discharge Instructions: 1. May shower the day after surgery over incisions. 2. Call office for: -Wound increasingly painful or bleeding -Vomiting -Fever of greater than 101 degrees 3. Expect some blood on dressing and old blood on skin. 4. If no bowel movement for three days, take 1 oz. (30 ml) Milk of Magnesia, if no results, take Fleets enema. 5. No heavy lifting > 15-20 pounds for 2 weeks. 6. No driving for 3 days or while taking narcotic pain medications. 7. Up walking 10-30 minutes three times per day. Stairs are okay 8. Resume previous home medications. 9. Follow-up 10-14 days in office for wound check or as previously scheduled. 10. Oral pain medications prescription to be sent home with patient. Patient Instructions: Antibiotic Form Patient Language: Rw[place] Stand Alone Forms: General Discharge Information, Work/School Release IP Follow-up/Referrals: Kuldeep Sanchez MD [Physician, General Surgery] - 10/02/25 Referral Note: Call Dr. Li office to make appointment Discharge Medications: New oxycodone-acetaminophen [Percocet] 5-325 mg tablet 0.5 - 1 tablet PO Q4H PRN (Reason: pain) Qty: 10 0RF Continued buspirone 15 mg tablet 15 mg PO DAILY escitalopram oxalate 20 mg tablet 20 mg PO DAILY methylphenidate HCl 36 mg tablet extended release 24hr 36 mg PO DAILY PRN (Reason: focus) Date of admission: 09/23/25 13:07 Primary Care Provider: Ana,Constanza Lyons Admitting Provider: Kuldeep Sanchez Attending physician on admission: Kuldeep Sanchez Condition: Improved
== END 2025-09-24 13:25 | disposition home or self-care (01) | DRG 399 ==
LOC: ANHED 17:05 → ANH3MED 17:41
PROVIDERS: Admitting Provider Surgery; Emergency Provider Physician Assistant; PCP Nurse Practitioner; Visit Provider Surgery
PROC: 0DTJ4ZZ Resection of Appendix, Percutaneous Endoscopic Approach (ICD-10-PCS; CPT 44970; principal; 2025-09-23 15:00)
DX: K36 Other appendicitis (principal)
CPT/HCPCS: 36415; 74177; 80048; 80053; 81001; 83690; 85025; 85027; 88304; 96361; 96365; 96366; 96367; 96375; 96376; 99285; A9270; G0378; J0692; J1100; J1741; J1836; J2250; J2270; J2405; J2543; J2704; J3010; J3480; J7030; J7120; Q9967